=== PATIENT | male | born 1950 | race Caucasian/White ===

== ENCOUNTER → 2018-02-17 | Outpatient (CLI) | payer BC, MEDICARE ==
[~2018-02-17] MED LIST: ERTA1VIA IV; HYDR12.53 PO; LAMO25TA52 PO; LOSA50TA7 PO; OMEP-110 PO; OMNIPAQUE 350 MG/ML, 100ML BOTTLE ONE; QUET25TA PO
== END | disposition home or self-care (01) ==
LOC: CFH 11:58
PROVIDERS: ATTEND Internal Medicine Infectious Disease
DX: K76.0 Fatty (change of) liver, not elsewhere classified (principal); K75.0 Abscess of liver; K57.30 Diverticulosis of large intestine without perforation or abscess without bleeding; D18.09 Hemangioma of other sites
CPT/HCPCS: 74177; Q9967

== ENCOUNTER → 2018-03-10 | Outpatient (CLI) | payer BC, MEDICARE | END | disposition home or self-care (01) | LOC: CFH 10:06 | PROVIDERS: ATTEND Internal Medicine Infectious Disease | DX: K80.20 Calculus of gallbladder without cholecystitis without obstruction (principal); K75.0 Abscess of liver | CPT/HCPCS: 74177; Q9967 ==